=== PATIENT | female | born 1970 | race Caucasian/White ===

== ENCOUNTER 2021-11-14 23:43 | Emergency (ER) | payer OTHER ==
[2021-11-14 23:52] VITALS: BP 133/84; PULSE 93; BMI 30.2
== END 2021-11-15 03:37 | disposition home or self-care (01) ==
LOC: JER 23:43
PROC: 0HQ1XZZ Repair Face Skin, External Approach (ICD-10-PCS; principal; 2021-11-14)
DX: S01.81XA Laceration without foreign body of other part of head, initial encounter (principal); W01.0XXA Fall on same level from slipping, tripping and stumbling without subsequent striking against object, initial encounter
CPT/HCPCS: 99282-25